=== PATIENT | female | born 1960 | race Caucasian/White ===

== ENCOUNTER → 2016-06-22 13:14 | Emergency (ER) | payer MEDICARE, OTHER ==
[~2016-06-22 13:14] MED LIST: ACETAMINOPHEN325 MG PO; AMITRIPTYLINE H50 MG PO; ASPIRIN EC81 MG PO; CARAFATE1 GM/10 ML PO; COZAAR50 MG PO; CYCLOBENZAPRINE10 MG PO; CYMBALTA30 MG PO; FENOFIBRATE134 MG PO; GLUCOVANCE 5-51 EACH PO; JANUVIA100 MG PO; LASIX80 MG PO; LIPITOR40 MG PO; MACROBID 100 M100 MG PO; NEURONTIN600 MG PO; NICOTINE TRANSD21 MG TOP; NOVOLOG1 UNIT/0.0 INJ; POTASSIUM CHLO10 MEQ PO; PROTONIX40 MG PO; SPIRIVA18 MCG IH; ULTRAM50 MG PO; VENTOLIN HFA8 GM IH; ZANTAC150 MG PO
== END | disposition left against medical advice (07) ==
LOC: ER 13:14
DX: Z53.21 Procedure and treatment not carried out due to patient leaving prior to being seen by health care provider (principal)

== ENCOUNTER 2016-08-22 20:05 | Emergency (ER) | payer MEDICARE, OTHER | END 2016-08-23 01:54 | disposition home or self-care (01) | LOC: ER 20:05 | DX: R10.84 Generalized abdominal pain (principal); R11.0 Nausea; R30.0 Dysuria; R35.0 Frequency of micturition; R39.15 Urgency of urination; E66.01 Morbid (severe) obesity due to excess calories; I10 Essential (primary) hypertension; E11.9 Type 2 diabetes mellitus without complications; K21.9 Gastro-esophageal reflux disease without esophagitis; F17.210 Nicotine dependence, cigarettes, uncomplicated; Z79.82 Long term (current) use of aspirin; Z79.84 Long term (current) use of oral hypoglycemic drugs; Z79.899 Other long term (current) drug therapy; Z88.1 Allergy status to other antibiotic agents; Z88.2 Allergy status to sulfonamides; Z88.8 Allergy status to other drugs, medicaments and biological substances; Z90.710 Acquired absence of both cervix and uterus | CPT/HCPCS: 36415; 96361; 96374; 96375 ==